=== PATIENT | male | born 1970 | race Caucasian/White ===

== ENCOUNTER 2016-08-23 11:34 | Emergency (ER) | payer BC ==
[2016-08-23 12:09] VITALS: BP 189/107
[2016-08-23] MEDS ORDERED: Diphtheria,Pertussis(Acell),Tetanus Vaccine 0.5 ML SDV IM ONE (12:20)
[2016-08-23] MEDS ORDERED: Lidocaine 1% 20 ML MDV INJECT ONE (12:24)
[2016-08-23] MEDS ORDERED: Bacitracin Oint 1 GM U/D Packet TOP ONE (12:29)
--- NOTE | 2016-08-23 12:30 | EDM.PDOC ---
ED HPI Trauma - General Chief Complaint: Upper Extremity Injury/Pain Stated Complaint: LT HAND INJURY WITH HAMMER Time Seen by Provider: 08/23/16 12:30 Source: Reports: Patient History Limitations: Reports: No limitations - History of Present Illness INITIAL COMMENTS - FREE TEXT/NARRATIVE: pt was found to have laceration on the dorsal aspect of the left middle finger 1 /2 inch in length. he appeared to have adequate motion and sensation. Occurred When: just prior to arrival Method of Injury: direct blow, other ( Pt was splitting wood to put on the grill and the wood slipped and hit the dorsal aspect of his finger causing the laceration. ) Pain/Injury Location: Reports: upper extremity, left, lower extremity, left Associated Symptoms: Reports: denies other symptoms Allergies/ADRs: Allergies No Known Allergies Allergy (Verified 08/23/16 11:59) Home Medications: Ambulatory Orders Gemfibrozil 600 mg PO BID 08/23/16 [Confirmed 08/24/16] Glimepiride [Glimepiride] 0.5 tab PO BID 08/23/16 [Confirmed 08/24/16] Lisinopril [Lisinopril] 10 mg PO DAILY 08/23/16 [Confirmed 08/24/16] Metoprolol Succinate [Metoprolol Succinate] 50 mg pe PO DAILY 08/23/16 [ Confirmed 08/24/16] metFORMIN [Glucophage] 1,000 mg PO BID 08/23/16 [Confirmed 08/24/16] Past Medical History Endocrine/Metabolic History: Reports: Diabetes, type II Social & Family History - Tobacco Use Smoking Status *Q: Never Smoker Review of Systems - Review of Systems Review Of Systems: See Below Constitutional: Reports: no symptoms Eyes: Reports: no symptoms Ears: Reports: no symptoms Nose: Reports: no symptoms Mouth/Throat: Reports: no symptoms Respiratory: Reports: No Symptoms Cardiovascular: Reports: no symptoms GI/Abdominal: Reports: No symptoms Musculoskeletal: Reports: other ( laceration of the middle finger of the left hand. ) Trauma Exam - Physical Exam Exam: See Below Text/Narrative:: Pt had a large piece of wood hit the dorsal aspect of the middle finger of the left hand. He ended up with a laceration just distal to the knuckle Exam Limited By: No limitations General Appearance: Reports: alert Head: Reports: atraumatic Extremities: Reports: other (left middle finger has a 1/2 inch laceration just distal to the knuckle. The area was cleansed well and infiltrated with lidocaine. The wound was explored and the extensor tendon attached to the knuckle was lacerated. Dr Pascual Stanley was contacted and he will see him tomorrow. He requested that the wound be closed. He will be placed on keflex 500mg tis and use tylenol or motrin for pain. ) Course - Vital Signs Last Recorded V/S: Last Vital Signs Temp 36.5 C 08/23/16 12:06 Pulse 62 08/23/16 12:06 Resp 14 08/23/16 12:06 BP 189/107 H 08/23/16 12:06 Pulse Ox 97 08/23/16 12:06 - Orders/Labs/Meds Meds: Medications Discontinued Medications Generic Name Dose Route Start Last Admin Trade Name Freq PRN Reason Stop Dose Admin Bacitracin 1 dose 08/23/16 12:29 08/23/16 12:46 Bacitracin Oint 1 Gm TOP 08/23/16 12:30 1 dose ONETIME ONE Administration Diphtheria/Tetanus/Acell Pertussis 0.5 ml 08/23/16 12:20 08/23/16 12:47 Adacel IM 08/23/16 12:21 0.5 ml .ONCE ONE Administration Lidocaine HCl 20 ml 08/23/16 12:24 08/23/16 12:46 Xylocaine 1% INJECT 08/23/16 12:25 20 ml ONETIME ONE Administration Departure - Departure Time of Disposition: 13:49 Disposition: Home, Self-Care 01 Condition: fair Clinical Impression: Laceration of left middle finger, Laceration of extensor muscle, fascia and tendon of left middle finger at wrist and hand level, subsequent encounter Instructions: Laceration Care, Adult, [id number] Referrals: Lv Rivera PA [Primary Care Provider] - Forms: ED Department Discharge Care Plan Goals: appt with Dr Chad Stanley ten forty-five tomorrow,leave splint in place, tylenol or motrin for pain keflex 500mg tid.
--- NOTE | 2016-08-24 09:22 | CR ---
[employer] F2 HISTORY: smashing injury FINDINGS: No acute fracture or dislocation is identified. Bony architecture and joint spaces are preserved. Soft tissue laceration noted. There is no visible foreign body. IMPRESSION: No fracture or dislocation left third finger is identified. Soft tissue laceration is noted. No radi opaque foreign body.
== END 2016-08-23 14:38 | disposition home or self-care (01) ==
LOC: JP.ED 11:34
DX: S61.213A Laceration without foreign body of left middle finger without damage to nail, initial encounter (principal); E11.9 Type 2 diabetes mellitus without complications; Z23 Encounter for immunization; Z79.899 Other long term (current) drug therapy; X58.XXXA Exposure to other specified factors, initial encounter
CPT/HCPCS: 73140-26-F2; 73140-F2; 90471; 90715; 99283-25

== ENCOUNTER 2016-08-25 05:56 | Day surgery (SDC) | payer BC ==
[2016-08-25] MEDS ORDERED: Lactated Ringers 1,000 ML IV SCH (06:30)
[2016-08-25] MEDS ORDERED: Bupivacaine 0.5% 50 ML MDV ONE (06:45)
[2016-08-25] MEDS ORDERED: Dexamethasone 4 MG/ML 5 ML MDV ONE (06:45)
[2016-08-25] MEDS ORDERED: Povidone-Iodine 10% Soln 118.25 ML Bottle ONE (06:45)
[2016-08-25] MEDS ORDERED: Midazolam 1 MG/ML 2 ML SDV ONE (07:20)
[2016-08-25] MEDS ORDERED: Propofol 200 MG/20 ML SDV ONE (07:20)
[2016-08-25] MEDS ORDERED: fentaNYL 100 MCG/2 ML SDV ONE (07:20)
[2016-08-25] MEDS ORDERED: Lidocaine 0.5% 50 ML SDV ONE (07:53)
[2016-08-25 09:23] VITALS: BP 104/71
--- NOTE | 2016-08-25 10:14 | OR ---
DATE OF PROCEDURE: 08/25/2016 PREOPERATIVE DIAGNOSIS: Left long finger extensor tendon laceration. POSTOPERATIVE DIAGNOSIS: Left long finger extensor tendon laceration. PROCEDURE: Left long finger extensor tendon laceration repair. HOSIERY LOOPER: Alondra ANDUJAR. ANESTHESIA: Bare block plus conscious sedation. FLUID: Lactated Ringer solution. ESTIMATED BLOOD LOSS: Zero. COMPLICATIONS: None. SPECIMEN: None. DISPOSITION: Stable to PACU. INDICATION FOR THE PROCEDURE: The patient was seen over the weekend by Dr. Lo in the emergency department. He was cutting wood, and he had a piece of wood fall on his left long finger injuring it. He was seen in the emergency department where he was found to have a left long finger extensor tendon laceration. This was then irrigated and then sutured shut as best as we could and then told to follow up. We saw him in the clinic. Risks and benefits of the procedure were explained to the patient. Informed consent was obtained. DETAILS OF PROCEDURE: The patient was seen preoperatively by myself, the anesthesia staff, the preoperative holding area where the operative site was marked. He was brought to the operative suite by the anesthesia staff where anibal block with conscious sedation was administered. The left upper extremity was then prepped and draped in a sterile manner. Time-out was called in after the correct patient, correct procedure, correct site, and antibiotics had begun with appropriate period of time. I removed the sutures that were present over the proximal interphalangeal joint dorsally and ulnarly of the long finger. I then extended a Angela incision proximally and distally to create a flap. We irrigated and then identified the extensor tendon. About half of the extensor tendon was actually lacerated, more on the ulnar side. I then used a Krackow stitch to repair the tendon with 3-0 nylon nonabsorbable suture. I then irrigated. I blocked the patient with Marcaine for extended pain relief and then sutured my skin flaps shut with 3-0 nylon in a horizontal mattress manner. Sterile dressing was then applied. The block was then let down, and he was taken to the PACU in stable condition. Chad Stanley DO /[id number]
== END 2016-08-25 09:40 ==
LOC: JP.SDS 05:56
PROVIDERS: ATTEND Orthopaedic Surgery
DX: S56.424A Laceration of extensor muscle, fascia and tendon of left middle finger at forearm level, initial encounter (principal); E11.9 Type 2 diabetes mellitus without complications
CPT/HCPCS: 26418; J2250; J2704; J3010; J7120; J1100

== ENCOUNTER 2018-10-01 21:26 | Emergency (ER) | payer BC ==
[2018-10-01] MEDS ORDERED: Oxymetazoline 0.05% Nasal Spray 15 ML Bottle NASBOTH ONE (22:16)
[2018-10-01] MEDS ORDERED: Lidocaine 1% with EPINEPHrine 1:100,000 50 ML MDV INJECT ONE (22:16)
[2018-10-01] MEDS ORDERED: Silver Nitrate Applicator Each TOP ONE (22:16)
--- NOTE | 2018-10-01 22:20 | EDM.PDOC ---
ED HPI GENERAL MEDICAL PROBLEM - General Chief Complaint: ENT Problem Stated Complaint: nose bleed Time Seen by Provider: 10/01/18 22:10 Source of Information: Reports: Patient, Family History Limitations: Reports: No Limitations - History of Present Illness INITIAL COMMENTS - FREE TEXT/NARRATIVE: Alert pleasant 47-year-old gentleman presents with right nosebleed. Patient was working outside most of the day doing some yardwork and repairing some on S[place]a. Patient rubbed his nose frequently but does not recall picking his nose. Patient blew his nose just before heading to bed for the night. He had significant amount of blood coming from his nose and blood tracking around his eye. Patient denies any fever chills sweats or URI symptoms. Patient applied pressure and bleeding did not resolve. Patient presents with his for evaluation due to nosebleed that has been going on for nearly 1-1/2 hours. Patient's 90 blood thinners. He has been drinking some alcohol throughout the day but not significant amount. Patient has a history of minor nosebleeds in the past or duration of time. Onset: Sudden - Related Data Allergies Allergy/AdvReac Type Severity Reaction Status Date / Time No Known Allergies Allergy Verified 10/01/18 21:59 Home Meds: Home Meds Gemfibrozil 600 mg PO BID 08/23/16 [History] Glimepiride 0.5 tab PO BID 08/23/16 [History] Lisinopril 10 mg PO DAILY 08/23/16 [History] Metoprolol Succinate 50 mg pe PO DAILY 08/23/16 [History] metFORMIN [Glucophage] 1,000 mg PO BID 08/23/16 [History] Past Medical History HEENT History: Reports: None Cardiovascular History: Reports: High Cholesterol, Hypertension Other Cardiovascular History: 2011 swimming induced pulmonary edema r/t scuba diving; stopped breathing had CPR performed Respiratory History: Reports: Other (See Below) Other Respiratory History: pulmonary edema Gastrointestinal History: Reports: Pancreatitis Genitourinary History: Reports: None Musculoskeletal History: Reports: Fracture Endocrine/Metabolic History: Reports: Diabetes, Type II, Obesity/BMI 30+ - Infectious Disease History Infectious Disease History: Reports: Chicken Pox, Mumps - Past Surgical History HEENT Surgical History: Reports: LASIK, Oral Surgery Male Surgical History: Reports: Vasectomy Other Male Surgeries/Procedures: abscess r/t vasectomy surgery Musculoskeletal Surgical History: Reports: None Social & Family History - Family History Cardiac: Reports: Hypertension Neurological: Reports: Cerebral Aneurysms Endocrine/Metabolic: Reports: Diabetes, type II - Tobacco Use Smoking Status *Q: Never Smoker Second Hand Smoke Exposure: No - Caffeine Use Caffeine Use: Reports: Coffee - Alcohol Use Days Per Week of Alcohol Use: 7 Number of Drinks Per Day: 2 Total Drinks Per Week: 14 Date of Last Drink: 10/01/18 Time of Last Drink: 18:00 - Recreational Drug Use Recreational Drug Use: No ED ROS ENT - Review of Systems Review Of Systems: ROS reveals no pertinent complaints other than HPI. ED EXAM, ENT - Physical Exam Exam: See Below Exam Limited By: No Limitations General Appearance: Alert, WD/WN, No Apparent Distress Eye Exam: Right Eye: Bleeding, Bilateral Eye: PERRL Nose: Normal Inspection, Normal Mucousa, Active Bleeding (right nares anterior ) , Other Mouth/Throat: Normal Inspection, Normal Gums, Normal Lips, Normal Oropharynx, Normal Teeth Head: Normocephalic Neck: Normal Inspection, Supple, Non-Tender, Full Range of Motion Respiratory/Chest: No Respiratory Distress, Lungs Clear, Normal Breath Sounds Cardiovascular: Normal Peripheral Pulses, Regular Rate, Rhythm Neurological: Alert, Oriented, CN II-XII Intact, Normal Cognition, Normal Gait Psychiatric: Normal Affect, Normal Mood Skin: Warm, Dry, Intact, Normal Color, No Rash ED ENT PROCEDURES - Epistaxis Procedure Indication: Epistaxis Recent anticoagulants/antiplatlets: No Uncontrolled HTN: No Recent septal/nasal surgery: No Site of bleeding: Right Nare Clearing of clots: Patient Blew Nose Topical Meds: Other (silver nitrate and lidocaine w/ epi soaked packing ) Ice pack to area: No Chemical cautery: Silver Nitrate Topical Anterior Packing: Other (lidocaine soaked gauze temporary with nose clamp. ) Local anesthesia - Lidocaine (Xylocaine): 1% with EPI Local Anesthetic Volume: 3cc (on gauze ) Course - Vital Signs Last Recorded V/S: Last Vital Signs Temp 35.6 C 10/01/18 22:26 Pulse 96 10/01/18 22:26 Resp 16 10/01/18 22:26 BP 152/100 H 10/01/18 22:26 Pulse Ox 96 10/01/18 22:26 - Orders/Labs/Meds Meds: Medications Discontinued Medications Generic Name Dose Route Start Last Admin Trade Name Sabiha PRN Reason Stop Dose Admin Lidocaine/Epinephrine 5 ml 10/01/18 22:16 10/01/18 22:27 Xylocaine 1% With Epinephrine 1:100,000 INJECT 10/01/18 22:17 5 ml NOW ONE Administration Oxymetazoline HCl 0 ml 10/01/18 22:16 Afrin Original 0.05% Nasal Ramona NASBOTH 10/01/18 22:17 ONETIME ONE Oxymetazoline HCl Confirm 10/01/18 22:32 Afrin Original 0.05% Nasal Ramona Administered 10/01/18 22:33 Dose 15 ml .ROUTE .STK-MED ONE Silver Nitrate 2 each 10/01/18 22:16 10/01/18 22:28 Silver Nitrate TOP 10/01/18 22:17 2 each ONETIME ONE Administration Departure - Departure Time of Disposition: 22:56 Disposition: Home, Self-Care 01 Condition: Good Clinical Impression: Epistaxis, Anterior epistaxis - Discharge Information Referrals: PCP,None [Primary Care Provider] - Forms: ED Department Discharge Additional Instructions: 1. USE LUBRICANT IN NOSE (VASELINE 1-2 x DAILY). After using nasal spray. 2. Avoid rubbing, sneezing and blowing nose x 48 hours. Sneeze out your mouth!!! 3. Follow nose bleed information as follows. 4. If bleeding blow nose to remove all clots then place nose clip and tilt head forward x min 15 min. 5. If packing placed it will need to be removed in 48 hours and you may have been given an antibiotic to prevent infection due to foreign body reaction for nasal packing. 6. Return for repeat evaluation if increase, changes, new or worsen symptoms. THE DISCHARGE INSTRUCTIONS ARE INTENDED A COMPLEMENT TO AND NOT A REPLACEMENT FOR THE VERBAL INSTRUCTIONS THAT I HAVE PROVIDED YOU TODAY. AFTER GOING OVER THE PLAN OF CARE TONIGHT AND PROVIDING YOU WITH THE VERBAL INSTRUCTIONS AT DISCHARGE YOU HAVE HAD THE OPPORTUNITY TO ASK FURTHER QUESTIONS AND TO CLARIFY UNCERTAINTIES. THANK YOU FOR ALLOWING US TO ASSIST WITH YOUR MEDICAL CONCERNS AND NEEDS. Discharge Instructions Epistaxis Today you were seen for a nosebleed. Nosebleeds (the medical term is "epistaxis") are very common. Almost every person has had at least one in their lifetime. Although the amount of blood loss can appear dramatic, nosebleeds rarely cause serious problems. The most common causes are dry air or nose picking, but they also are common in people who have allergies, high blood pressure, or are on blood thinners (such as Coumadin, Aspirin or Plavix). If you or your child gets a nosebleed, the important thing is to know how to take care of it. With the right self-care, most nosebleeds will stop on their own. Generally, every Emergency Department visit should have a follow-up clinic visit with either a primary or a specialty clinic/provider. Please follow-up as instructed by your emergency provider today. Return to the Emergency Department if: Your nose is bleeding a very large amount of blood and you are unable to stop it. You get very pale, faint, or tired. You cannot get the bleeding to stop after following these instructions. Treatment: Your provider may tell you to use a decongestant nose spray, like Afrin ( oxymetazoline), in both nostrils in the morning and at night for the next three days. Do not use this medicine for more than three days at a time. If you do, it will cause nasal congestion. Use a moisturizer. A small amount of Vaseline to the inside of your nostrils for moisture before bed is one option. There are nasal sprays available [id number] for this purpose as well. Using a humidifier in your bedroom or home will help as well when the air is dry. For the next three days, do not blow your nose or put anything in your nose. You may sniffle, or dab the outside of your nose. Do not bend with your head below your waist for the next three days. Do not lift anything so heavy that you have to strain. If you received nasal packing, please do not remove the packing until seen by an Ear, Nose, and Throat (ENT) specialist. If antibiotics have been given with the packing, please take as directed. If your nose starts to bleed again: Blow your nose to get rid of some of the clots that have formed inside your nostrils. This may increase the bleeding temporarily, but that is okay. Ramona decongestant nose spray (like Afrin) into both nostrils to constrict the blood vessels. Sit or stand while bending forward slightly at the waist. Do not lie down or tilt your head back. This may cause you to swallow blood and can lead to vomiting. [employer] the soft part of BOTH nostrils at the bottom of your nose and squeeze your nose closed for at least 5 minutes (for children) or 10 to 15 minutes (for adults). Use a clock to time yourself. Do not release the pressure every so often to check whether the bleeding has stopped. Many people hurt their chances of stopping the bleeding by releasing the pressure too soon or too often. If you follow the steps outlined above, and your nose continues to bleed, repeat all the steps once more. Apply pressure for a total of at least 30 minutes. If you continue to bleed even then, seek medical attention. If you were given a prescription for medicine here today, be sure toread all of the information (including the package insert) that comes with your prescription. This will include important information about the medicine, its side effects, and any warnings that you need to know about. The pharmacist who fills the prescription can provide more information and answer questions you may have about the medicine. If you have questions or concerns that the pharmacist cannot address, please call or return to the Emergency Department. Remember that you can always come back to the Emergency Department if you are not able to see your regular provider in the amount of time listed above, if you get any new symptoms, or if there is anything that worries you. - Problem List & Annotations (1) Anterior epistaxis SNOMED Code(s): 834011261 Code(s): R04.0 - EPISTAXIS Status: Acute Current Visit: Yes - Assessment/Plan Assessment:: NOSE BLEED 1. USE LUBRICANT IN NOSE (VASELINE 1-2 x DAILY). After using nasal spray. 2. Avoid rubbing, sneezing and blowing nose x 48 hours. Sneeze out your mouth!!! 3. Follow nose bleed information as follows. 4. If bleeding blow nose to remove all clots then place nose clip and tilt head forward x min 15 min. 5. If packing placed it will need to be removed in 48 hours and you may have been given an antibiotic to prevent infection due to foreign body reaction for nasal packing. 6. Return for repeat evaluation if increase, changes, new or worsen symptoms.
[2018-10-01] MEDS ORDERED: Oxymetazoline 0.05% Nasal Spray 15 ML Bottle ONE (22:32)
[2018-10-01 22:52] VITALS: BP 147/92
== END 2018-10-01 23:05 | disposition home or self-care (01) ==
LOC: JP.ED 21:26
DX: R04.0 Epistaxis (principal); I10 Essential (primary) hypertension; E78.00 Pure hypercholesterolemia, unspecified; E11.9 Type 2 diabetes mellitus without complications; Z79.84 Long term (current) use of oral hypoglycemic drugs; Z79.899 Other long term (current) drug therapy
CPT/HCPCS: 30901; 99282; A9270-GY

== ENCOUNTER 2022-06-29 06:55 | Day surgery (SDC) | payer BC ==
[2022-06-29] MEDS ORDERED: Midazolam 1 MG/ML 2 ML SDV ONE (07:07)
[2022-06-29] MEDS ORDERED: fentaNYL 50 MCG/ML SDV ONE (07:07)
[2022-06-29] MEDS ORDERED: Propofol 200 MG/20 ML SDV ONE ×2 (07:07→07:56)
[2022-06-29] MEDS ORDERED: Lactated Ringers 1,000 ML IV SCH (07:30)
[2022-06-29 09:13] VITALS: PULSE 78
[2022-06-29 10:14] VITALS: BP 132/79
== END 2022-06-29 09:55 | disposition home or self-care (01) ==
LOC: JP.SDS 06:55
PROVIDERS: ATTEND Student in an Organized Health Care Education/Training Program
DX: Z12.11 Encounter for screening for malignant neoplasm of colon (principal); D12.7 Benign neoplasm of rectosigmoid junction; D12.4 Benign neoplasm of descending colon; I10 Essential (primary) hypertension; Z79.899 Other long term (current) drug therapy
CPT/HCPCS: 45380; J2250; J2704; J3010; J7120

== ENCOUNTER 2022-12-17 16:34 | Observation (INO) | payer BC ==
[2022-12-17] MEDS ORDERED: Ondansetron 4 MG/2 ML SDV IVPUSH PRN (17:02)
[2022-12-17] MEDS ORDERED: Sodium Chloride 0.9% 10 ML Syringe FLUSH PRN (17:02)
[2022-12-17] MEDS ORDERED: Sodium Chloride 0.9% 1,000 ML IV ONE (17:15)
[2022-12-17] MEDS ORDERED: Piperacillin/Tazobactam 3.375 GM in Sodium Chloride 0.9% 50 ML IV SCH (17:15)
[2022-12-17] MEDS ORDERED: fentaNYL 250 MCG/5 ML SDV ONE (17:21)
[2022-12-17] MEDS ORDERED: Dexamethasone 4 MG/ML SDV ONE (17:21)
[2022-12-17] MEDS ORDERED: Ondansetron 4 MG/2 ML SDV ONE (17:21)
[2022-12-17] MEDS ORDERED: Glycopyrrolate 0.2 MG/ML 5 ML MDV ONE (17:21)
[2022-12-17] MEDS ORDERED: Propofol 200 MG/20 ML SDV ONE (17:21)
[2022-12-17] MEDS ORDERED: Rocuronium 50 MG/5 ML Vial ONE (17:21)
[2022-12-17] MEDS ORDERED: Succinylcholine 200 MG/10 ML MDV ONE (17:21)
[2022-12-17] MEDS ORDERED: Neostigmine Methylsulfate 1 MG/ML 5 ML Syringe ONE (17:21)
[2022-12-17] MEDS ORDERED: HYDROmorphone 0.5 MG/0.5 ML Syringe IV ONE (17:24)
[2022-12-17 17:25] LABS: PROTHROMBIN TIME 10.4 sec (9.2-10.6)
[2022-12-17] MEDS ORDERED: Bupivacaine 0.5%/EPINEPHrine 1:200,000 50 ML MDV ONE (17:27)
[2022-12-17 17:28] LABS: A/G RATIO 0.9 (1.2-2.2); ALANINE AMINOTRANSFERASE,ALT 29 U/L (12-78); ALBUMIN 3.8 g/dL (3.4-5.0); ALKALINE PHOSPHATASE 56 U/L (46-116); ASPARTATE AMNIOTRANSFERASE,AST 20 U/L (15-37); BILIRUBIN DIRECT 0.21 mg/dL (0.0-0.2); BILIRUBIN TOTAL 1.4 mg/dL (0.2-1.0); BLOOD UREA NITROGEN,BUN 14 mg/dL (7-18); CARBON DIOXIDE,CO2 22 mmol/L (21-32); CHLORIDE,CL 96 mmol/L (100-108); CREATININE 0.9 mg/dL (0.8-1.3); EST CRCL DRUG DOSING (CG) 78.15 mL/min; ESTIMATED GFR 103 mL/min (>60); GLUCOSE RANDOM 229 mg/dL (74-106); MAGNESIUM 1.6 mg/dL (1.8-2.4); PROTEIN TOTAL,TP 7.9 g/dL (6.4-8.2); SODIUM,NA 132 mmol/L (140-148)
[2022-12-17] MEDS ORDERED: Piperacillin/Tazobactam/Dext 3.375 GM in Premix Bag 1 BAG IV SCH (17:30)
[2022-12-17] MEDS ORDERED: Magnesium Sulfate/Water 2 GM in Premix Bag 1 BAG IV ONE (17:37)
[2022-12-17] MEDS ORDERED: Sodium Chloride 0.9% 1,000 ML IV SCH (18:15)
[2022-12-17] MEDS ORDERED: Glucagon,Human Recombinant 1 MG Vial IM PRN (19:28)
[2022-12-17] MEDS ORDERED: 50% Dextrose in Water 50 ML Syringe IVPUSH PRN (19:28)
[2022-12-17] MEDS ORDERED: Sugammadex Sodium 200 MG/2 ML VIAL ONE (19:30)
[2022-12-17] MEDS: Insulin Lispro 100 Unit/ML 3 ML KwikPen SUBCUT SCH (21:44)
[2022-12-17] MEDS: Acetaminophen/HYDROcodone 325-5 MG Tab PO PRN (21:51)
[2022-12-18] MEDS: Acetaminophen/HYDROcodone 325-5 MG Tab PO PRN ×4 (02:37→14:42)
[2022-12-18 04:37] LABS: HEMATOCRIT 36.8 % (38.4-49.7); HEMOGLOBIN 12.8 g/dL (12.9-16.9); MEAN CORPUSCULAR HEMOGLOBIN 29.6 pg (31.6-35.5); MEAN CORPUSCULAR HGB CONC 34.8 g/dL (31.6-35.5); RED BLOOD CELL COUNT 4.33 M/uL (4.14-5.76); WHITE BLOOD CELL COUNT,WBC 12.3 K/uL (3.2-11.0)
[2022-12-18 04:59] LABS: A/G RATIO 0.9 (1.2-2.2); ALANINE AMINOTRANSFERASE,ALT 26 U/L (12-78); ALBUMIN 3.2 g/dL (3.4-5.0); ALKALINE PHOSPHATASE 45 U/L (46-116); ASPARTATE AMNIOTRANSFERASE,AST 19 U/L (15-37); BILIRUBIN TOTAL 1.2 mg/dL (0.2-1.0); BLOOD UREA NITROGEN,BUN 14 mg/dL (7-18); CALCIUM 8.2 mg/dL (8.5-10.1); CARBON DIOXIDE,CO2 23 mmol/L (21-32); CHLORIDE,CL 99 mmol/L (100-108); EST CRCL DRUG DOSING (CG) 70.33 mL/min; ESTIMATED GFR 91 mL/min (>60); GLUCOSE RANDOM 268 mg/dL (74-106); POTASSIUM,K 4.4 mmol/L (3.6-5.2); PROTEIN TOTAL,TP 6.9 g/dL (6.4-8.2); SODIUM,NA 133 mmol/L (140-148)
[2022-12-18 05:11] LABS: ANION GAP 15.4 mmol/L (5.0-14.0); MAGNESIUM 2.2 mg/dL (1.8-2.4); PHOSPHORUS 4.2 mg/dL (2.5-4.9)
[2022-12-18] MEDS ORDERED: Glimepiride 2 MG Tab PO SCH (09:00)
[2022-12-18] MEDS ORDERED: Non-Formulary Medication 1 Each (Gemfibrozil [Gemfibrozil] 600 MG Tablet) PO SCH (09:00)
[2022-12-18] MEDS ORDERED: GLIMEPIRIDE 4 MG PO SCH (09:00)
[2022-12-18] MEDS ORDERED: Metoprolol Succinate 50 MG Tab.ER PO SCH (09:00)
[2022-12-18] MEDS ORDERED: GEMFIBROZIL 600 MG PO SCH (09:00)
[2022-12-18] MEDS: Insulin Lispro 100 Unit/ML 3 ML KwikPen SUBCUT SCH ×2 (09:03→11:46)
[2022-12-18 11:56] VITALS: BP 131/71; PULSE 71
== END 2022-12-18 17:25 | disposition home or self-care (01) ==
LOC: JP.MS 16:34
PROVIDERS: ADMIT Student in an Organized Health Care Education/Training Program; ATTEND Student in an Organized Health Care Education/Training Program
DX: K35.32 Acute appendicitis with perforation, localized peritonitis, and gangrene, without abscess (principal); E87.1 Hypo-osmolality and hyponatremia; E83.42 Hypomagnesemia; E80.6 Other disorders of bilirubin metabolism; K85.20 Alcohol induced acute pancreatitis without necrosis or infection; I10 Essential (primary) hypertension; E78.00 Pure hypercholesterolemia, unspecified; E11.9 Type 2 diabetes mellitus without complications; E66.9 Obesity, unspecified; Z87.891 Personal history of nicotine dependence; Z79.84 Long term (current) use of oral hypoglycemic drugs; Z79.899 Other long term (current) drug therapy
CPT/HCPCS: 36415; 44970; 80053; 82248; 82947; 83735; 84100; 85027; 85610; 87635; 88304; 93010; 96374; A9270; G0378; G0379; J0330; J1100; J1170; J1815; J2405; J2543; J2704; J2710; J3010; J3490; J7030; U0002